=== PATIENT | female | born 1980 | race Caucasian/White ===

== ENCOUNTER → 2019-07-16 | Outpatient (CLI) | payer OTHER ==
--- NOTE | 2019-07-16 18:02 | CT ---
EXAMINATION TYPE: CT angio head DATE OF EXAM: 07/16/2019 HISTORY: Lt sided facial numbness, tingling in extremities, VARMA, history of brain aneurysm COMPARISON: None CT DLP: 1342.1 mGycm. Automated Exposure Control for Dose Reduction was Utilized. TECHNIQUE: CTA scan of the neck is performed without and with IV Contrast, patient injected with 100 mL of Isovue 370, axial images are obtained, coronal and sagittal reformatted images are reviewed. T hree-D reconstructed images are created on an independent workstation and reviewed. Source images ar e reviewed. FINDINGS: There is an aneurysm clip at the right skull base. Prior temporal craniotomy is evident. Cervical of [place]: Vertebral basilar system appears normal. Posterior cerebral vasculature is unrema rkable. Internal carotid arteries bifurcate normally into A1 and M1 segments. A2 segments are normal. The anterior communicating artery is patent. Posterior communicating arteries appear patent. Other: No suspicious acute intracranial changes evident IMPRESSION: 1. [place] of [place] appears normal post aneurysm clipping right skull base
== END | disposition home or self-care (01) ==
LOC: RADCTMAIN 07:49
PROVIDERS: ATTEND Family Medicine
DX: G43.909 Migraine, unspecified, not intractable, without status migrainosus (principal); Z86.79 Personal history of other diseases of the circulatory system; Z98.890 Other specified postprocedural states; Z88.1 Allergy status to other antibiotic agents
CPT/HCPCS: 70496; Q9967

== ENCOUNTER 2019-11-21 12:56 | Emergency (ER) | payer OTHER ==
[2019-11-21 13:03] VITALS: BP 127/86; PULSE 80; RESP 18; TEMP 98.8
[2019-11-21] MEDS ORDERED: Acetaminophen-Codeine 300-30mg TAB PO STA (13:27)
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
== END 2019-11-21 15:05 | disposition home or self-care (01) ==
LOC: EC 12:56
DX: S80.211A Abrasion, right knee, initial encounter (principal); S99.922A Unspecified injury of left foot, initial encounter; F17.200 Nicotine dependence, unspecified, uncomplicated; Z88.1 Allergy status to other antibiotic agents; Y04.0XXA Assault by unarmed brawl or fight, initial encounter; Y93.89 Activity, other specified; Y92.009 Unspecified place in unspecified non-institutional (private) residence as the place of occurrence of the external cause
CPT/HCPCS: 29515; 99283